=== PATIENT | female | born 2005 | race Caucasian/White ===

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

== ENCOUNTER 2025-02-09 11:49 | Outpatient (REF) | payer SELFPAY | END 2025-02-09 11:50 | disposition home or self-care (01) | LOC: LBN 11:49 | PROVIDERS: PCP Nurse Practitioner Family; Referring Provider Student in an Organized Health Care Education/Training Program; Visit Provider Student in an Organized Health Care Education/Training Program | DX: J02.9 Acute pharyngitis, unspecified (principal); J02.0 Streptococcal pharyngitis | CPT/HCPCS: 87081 ==

== ENCOUNTER 2025-06-07 15:51 | Outpatient (REF) | payer SELFPAY ==
[2025-06-07 22:20] LABS: COVID-19 PCR POSITIVE (Negative)
== END 2025-06-07 15:52 | disposition home or self-care (01) ==
LOC: LBN 15:51
PROVIDERS: PCP Pediatrics; Visit Provider Pediatrics
DX: J02.9 Acute pharyngitis, unspecified (principal)
CPT/HCPCS: 87635